=== PATIENT | female | born 1950 | race African-American/Black ===

== ENCOUNTER 2017-01-25 12:12 | Observation (INO) | payer OTHER, MEDICAID ==
[2017-01-25] MEDS ORDERED: PERCOCET TAB 5/325 MG PO PRN (14:50)
[2017-01-25] MEDS ORDERED: MILK OF MAGNESIA PO PRN (14:50)
[2017-01-25] MEDS ORDERED: XANAX PO PRN (14:50)
[2017-01-25] MEDS ORDERED: HumuLIN R SUBCUT PRN (14:50)
[2017-01-25] MEDS ORDERED: NS 250 ML IV 250 ML IV ONE (14:50)
[2017-01-25 15:24] LABS: EOSINOPHILS # (AUTO) 0.2 x10^3/uL (0.0-0.2); EOSINOPHILS % (AUTO) 3.6 % (0.9-2.9); HEMATOCRIT 27.6 % (36.0-47.0); HEMOGLOBIN 9.3 g/dL (12.0-16.0); LYMPHOCYTES # (AUTO) 1.4 X10^3/uL (1.3-2.9); LYMPHOCYTES % (AUTO) 30.2 % (21.0-51.0); MEAN CORPUSCULAR HEMOGLOBIN 26.3 pg (27.0-34.0); MEAN CORPUSCULAR HGB CONC 33.7 g/dL (33.0-35.0); MEAN CORPUSCULAR VOLUME 77.9 fL (80.0-100.0); MEAN PLATELET VOLUME 8.9 fL (7.4-11.0); MONOCYTES # (AUTO) 0.3 x10^3/uL (0.3-0.8); MONOCYTES % (AUTO) 5.5 % (0.0-13.0); NEUTROPHILS # (AUTO) 2.7 x10^3/uL (2.2-4.8); NEUTROPHILS % (AUTO) 59.7 % (42.0-75.0); PLATELET COUNT 164 X10^3/uL (150.0-450.0); RED BLOOD COUNT 3.54 X10^6/uL (3.5-5.4); RED CELL DISTRIBUTION WIDTH 15.5 % (11.6-16.5); RETICULOCYTE % 1.75 % (0.8-2.2); WHITE BLOOD COUNT 4.6 X10^3/uL (3.6-10.0)
[2017-01-25 15:34] LABS: ALANINE AMINOTRANSFERASE 21 Units/L (12-78); ALBUMIN 2.9 g/dL (3.4-5.0); ALKALINE PHOSPHATASE 99 Units/L (46-116); ASPARTATE AMINO TRANSFERASE 21 Units/L (15-37); BLOOD UREA NITROGEN 35 mg/dL (7-18); CARBON DIOXIDE 21.7 mmol/L (21-32); COR CA(FOR HYPOALB) 8.9 mg/dL (8.5-10.1); CREATININE 2.99 mg/dL (0.55-1.02); GLUCOSE 109 mg/dL (65-99); SODIUM 146 mmol/L (136-145); TOTAL PROTEIN 6.8 g/dL (6.4-8.2); eGFR BLACK RACES 20 (>60); eGFR NON BLACK RACES 17 (>60)
[2017-01-25 15:36] LABS: CHLORIDE 115 mmol/L (98-107)
[2017-01-25] MEDS: NS 1000 ML 1,000 ML IV SCH (15:44)
[2017-01-25 16:04] LABS: IRON 38 ug/dL (50-175); TRANSFERRIN 138 mg/dL (202-364)
[2017-01-25 16:05] LABS: ERYTHROCYTE SEDIMENTATION RATE 40 MM/HOUR (0-20)
[2017-01-25 16:23] VITALS: BMI 28.4
[2017-01-25] MEDS: SNACK - Diabetic Appropriate PO SCH (21:34)
[2017-01-25] MEDS: LIPITOR TAB 40 MG PO SCH (21:35)
[2017-01-25] MEDS: DILANTIN CAP 100 MG EXT REL PO SCH (21:35)
[2017-01-26 05:09] LABS: BASOPHILS % (AUTO) 0.7 % (0.2-1.0); EOSINOPHILS # (AUTO) 0.2 x10^3/uL (0.0-0.2); EOSINOPHILS % (AUTO) 4.1 % (0.9-2.9); HEMATOCRIT 24.6 % (36.0-47.0); HEMOGLOBIN 8.3 g/dL (12.0-16.0); LYMPHOCYTES # (AUTO) 1.5 X10^3/uL (1.3-2.9); LYMPHOCYTES % (AUTO) 35.4 % (21.0-51.0); MEAN CORPUSCULAR HEMOGLOBIN 26.6 pg (27.0-34.0); MEAN CORPUSCULAR HGB CONC 33.5 g/dL (33.0-35.0); MEAN CORPUSCULAR VOLUME 79.4 fL (80.0-100.0); MEAN PLATELET VOLUME 9.7 fL (7.4-11.0); MONOCYTES # (AUTO) 0.3 x10^3/uL (0.3-0.8); MONOCYTES % (AUTO) 7.3 % (0.0-13.0); NEUTROPHILS # (AUTO) 2.2 x10^3/uL (2.2-4.8); NEUTROPHILS % (AUTO) 52.5 % (42.0-75.0); PLATELET COUNT 134 X10^3/uL (150.0-450.0); RED BLOOD COUNT 3.11 X10^6/uL (3.5-5.4); RED CELL DISTRIBUTION WIDTH 15.7 % (11.6-16.5); WHITE BLOOD COUNT 4.1 X10^3/uL (3.6-10.0)
[2017-01-26 05:35] LABS: ALANINE AMINOTRANSFERASE 19 Units/L (12-78); ALBUMIN 2.6 g/dL (3.4-5.0); ALKALINE PHOSPHATASE 91 Units/L (46-116); ASPARTATE AMINO TRANSFERASE 16 Units/L (15-37); BLOOD UREA NITROGEN 39 mg/dL (7-18); CALCIUM 7.4 mg/dL (8.5-10.1); CARBON DIOXIDE 18.6 mmol/L (21-32); COR CA(FOR HYPOALB) 8.5 mg/dL (8.5-10.1); CREATININE 2.99 mg/dL (0.55-1.02); GLUCOSE 74 mg/dL (65-99); SODIUM 146 mmol/L (136-145); TOTAL PROTEIN 6.2 g/dL (6.4-8.2); eGFR BLACK RACES 20 (>60); eGFR NON BLACK RACES 17 (>60)
[2017-01-26] MEDS: NS 1000 ML 1,000 ML IV SCH ×2 (05:35→17:10)
[2017-01-26 05:38] LABS: CHLORIDE 117 mmol/L (98-107)
[2017-01-26 06:39] LABS: BILIRUBIN,URINE NEGATIVE (NEGATIVE); BLOOD/HEMOGLOBIN,URINE 1+ (NEGATIVE); GLUCOSE, URINE NEGATIVE (NEGATIVE); KETONES,URINE NEGATIVE (NEGATIVE); LEUKOCYTE ESTERASE ,URINE NEGATIVE (NEGATIVE); NITRITES,URINE NEGATIVE (NEGATIVE); PROTEIN,URINE 3+ (NEGATIVE); UROBILINOGEN,URINE NORMAL (NORMAL)
[2017-01-26 06:52] LABS: APPEARANCE,URINE SLIGHTLY HAZY (CLEAR); BACTERIA,URINE TRACE /HPF (NEGATIVE); COLOR,URINE YELLOW (YELLOW); SQUAMOUS EPITHELIAL CELL,UR RARE /HPF (NEGATIVE)
[2017-01-26] MEDS: COLACE CAP 100 MG PO SCH (08:35)
[2017-01-26] MEDS: PROTONIX TAB 40 MG PO SCH (08:35)
[2017-01-26] MEDS: DILANTIN CAP 100 MG EXT REL PO SCH ×2 (08:36→21:45)
[2017-01-26] MEDS ORDERED: PLAVIX PO SCH (09:00)
[2017-01-26] MEDS ORDERED: FOLIC ACID TAB 1 MG PO SCH (09:00)
[2017-01-26] MEDS ORDERED: OXYCODONE PO PRN (09:39)
[2017-01-26] MEDS ORDERED: XANAX PO PRN (09:39)
[2017-01-26] MEDS ORDERED: ACETAMINOPHEN PO PRN (09:39)
[2017-01-26] MEDS ORDERED: [UNRECOGNIZED DRUG - OTHER] PO SCH (09:45)
[2017-01-26] MEDS ORDERED: CHOLECALCIFEROL PO SCH (09:45)
[2017-01-26] MEDS ORDERED: CALCIUM CARBONATE PO SCH (09:45)
[2017-01-26] MEDS ORDERED: LIPITOR TAB 20 MG PO SCH (10:00)
[2017-01-26] MEDS ORDERED: DILANTIN CAP 100 MG EXT REL PO SCH (10:00)
[2017-01-26] MEDS ORDERED: PERCOCET TAB 5/325 MG PO PRN (10:14)
[2017-01-26] MEDS: FOLIC ACID TAB 1 MG PO SCH (11:10)
[2017-01-26] MEDS: PLAVIX PO SCH (11:11)
--- NOTE | 2017-01-26 12:57 | DR.UPDATE ---
H&P Update History and Physical Update: History and Physical reviewed and patient examined. Changes noted: NO Yes with the following: Scanned H&P from office reviewed and is correct. Patient admitted with acute on chronic renal failure, hypotension and shortness of breath.
[2017-01-26] MEDS: ASPIRIN EC 81 MG PO SCH (13:08)
[2017-01-26] MEDS: ANTIVERT TAB 25 MG PO SCH ×3 (13:08→21:46)
[2017-01-26] MEDS: PriLOSEC PO SCH (13:08)
--- NOTE | 2017-01-26 13:12 | PCM.PROG ---
Progress Note - Progress Note for Day of Date: 01/26/17 - Subjective Subjective: Pateint is a 66yo female who was admitted to the hospital with acute on chronic renal failure, hypotension and shortness of breath. Patient blood pressure has improved this am to 136/62. She states that she still feel very weak and tired. Vital sign this am 97.7, 78, 18, 98%, 136/62. Labs are within normal limits with the exception of RBC 3.11, Hgb 8.3, Hct 24.6, MCV 79.4 , MCH 26.6, Plt count 134, Eso% 4.1, ESR 40, Sodium 146, Chloride 117, Carbon Dioxide 18.6, BUN 39, Creatinine 2.99, Est GFR 17, Calcium 7.4, Total Bilirubin 0.10, Total Protein 6.2, Albumin 2.6, Albumin/Globulin ratio 0.7, Dilantin level 3.6. WE are going to order a renal sonogram and ECHO for patient, resume her home medication with the exception of blood pressure medications. WE are also going to place SCD and GCS for VTE prophylaxis - Past Medical Family Social History Past Med/Fam/Surg Hx: No changes since H&P Allergies: Allergies MS Iodine [Iodine] Allergy (Severe, Verified 01/25/17 15:09) patient stated she is allergic to xray dye. - Review of Systems ROS: No change since H&P - Vital Signs and I&O's Vital Signs: 97.7, 78, 18, 98%, 136/62 Intake and Output: Intake & Output 01/24/17 01/25/17 01/26/17 01/27/17 11:59 11:59 11:59 11:59 Intake Total 1039 Balance 1039 - Physical Exam Oriented: Normal Eyes: Normal Ear: Normal Nose: Normal Throat: Normal Respiratory: Normal Cardiovascular: Normal : Normal Auscultation: Bowel Sounds: Normal Palpation: Normal Tenderness: Normal Skin: Decreased Turgur Musculoskeletal: Instability Psychiatric: Normal Mood Description: Calm Speech Pattern: Clear, Appropriate - Laboratory and Diagnostics Result Diagrams: 01/26/17 03:00 01/26/17 03:00 Labs: Laboratory WBC 4.1 X10^3/uL (3.6-10.0) 01/26/17 03:00 RBC 3.11 X10^6/uL (3.5-5.4) L 01/26/17 03:00 Hgb 8.3 g/dL (12.0-16.0) L 01/26/17 03:00 Hct 24.6 % (36.0-47.0) L 01/26/17 03:00 MCV 79.4 fL (80.0-100.0) L 01/26/17 03:00 MCH 26.6 pg (27.0-34.0) L 01/26/17 03:00 MCHC 33.5 g/dL (33.0-35.0) 01/26/17 03:00 RDW 15.7 % (11.6-16.5) 01/26/17 03:00 Plt Count 134 X10^3/uL (150.0-450.0) L 01/26/17 03:00 MPV 9.7 fL (7.4-11.0) 01/26/17 03:00 Neut % 52.5 % (42.0-75.0) 01/26/17 03:00 Lymph % 35.4 % (21.0-51.0) 01/26/17 03:00 [place] % 7.3 % (0.0-13.0) 01/26/17 03:00 Eos % 4.1 % (0.9-2.9) H 01/26/17 03:00 Baso % 0.7 % (0.2-1.0) 01/26/17 03:00 Neut # 2.2 x10^3/uL (2.2-4.8) 01/26/17 03:00 Lymph # 1.5 X10^3/uL (1.3-2.9) 01/26/17 03:00 [place] # 0.3 x10^3/uL (0.3-0.8) 01/26/17 03:00 Eos # 0.2 x10^3/uL (0.0-0.2) 01/26/17 03:00 Baso # 0.0 X10^3/uL (0.0-0.1) 01/26/17 03:00 Absolute Nucleated RBC 0.1 /100WBC 01/26/17 03:00 ESR 40 MM/HOUR (0-20) H 01/25/17 15:10 Absolute Retic 0.0620 10^6/uL 01/25/17 15:10 Percent Retic 1.75 % (0.8-2.2) 01/25/17 15:10 Sodium 146 mmol/L (136-145) H 01/26/17 03:00 Corrected Sodium TNP 01/26/17 03:00 Potassium 4.7 mmol/L (3.5-5.1) 01/26/17 03:00 Chloride 117 mmol/L (98-107) H* 01/26/17 03:00 Carbon Dioxide 18.6 mmol/L (21-32) L 01/26/17 03:00 BUN 39 mg/dL (7-18) H 01/26/17 03:00 Creatinine 2.99 mg/dL (0.55-1.02) H 01/26/17 03:00 Est GFR (MDRD) Af Amer 20 (>60) L 01/26/17 03:00 Est GFR (MDRD) Non-Af 17 (>60) L 01/26/17 03:00 Glucose 74 mg/dL (65-99) 01/26/17 03:00 Calcium 7.4 mg/dL (8.5-10.1) L 01/26/17 03:00 Corrected Calcium 8.5 mg/dL (8.5-10.1) 01/26/17 03:00 Iron 38 ug/dL (50-175) L 01/25/17 15:10 Transferrin 138 mg/dL (202-364) L 01/25/17 15:10 Ferritin 87 ng/mL (8-252) 01/25/17 15:10 Total Bilirubin 0.10 mg/dL (0.2-1.0) L 01/26/17 03:00 AST 16 Units/L (15-37) 01/26/17 03:00 ALT 19 Units/L (12-78) 01/26/17 03:00 Alkaline Phosphatase 91 Units/L (46-116) 01/26/17 03:00 C-Reactive Protein 2.20 mg/L (0-3.0) 01/25/17 15:10 Total Protein 6.2 g/dL (6.4-8.2) L 01/26/17 03:00 Albumin 2.6 g/dL (3.4-5.0) L 01/26/17 03:00 Globulin 3.6 g/dL (2.5-4.5) 01/26/17 03:00 Albumin/Globulin Ratio 0.7 Ratio (1.1-2.1) L 01/26/17 03:00 Vitamin B12 830 pg/mL (193-986) 01/25/17 15:10 Folate > 20.0 ng/mL (>8.6) 01/25/17 15:10 Specimen Type Clean catch urine 01/26/17 06:18 Urine Color Yellow (YELLOW) 01/26/17 06:18 Urine Appearance Slightly hazy (CLEAR) 01/26/17 06:18 Urine pH 5.0 (5.0 - 8.0) 01/26/17 06:18 Ur Specific [place] 1.015 (1.000-1.030) 01/26/17 06:18 Urine Protein 3+ (NEGATIVE) 01/26/17 06:18 Urine Glucose (UA) Negative (NEGATIVE) 01/26/17 06:18 Urine Ketones Negative (NEGATIVE) 01/26/17 06:18 Urine Occult Blood 1+ (NEGATIVE) 01/26/17 06:18 Urine Nitrite Negative (NEGATIVE) 01/26/17 06:18 Urine Bilirubin Negative (NEGATIVE) 01/26/17 06:18 Urine Urobilinogen Normal (NORMAL) 01/26/17 06:18 Ur Leukocyte Esterase Negative (NEGATIVE) 01/26/17 06:18 Urine RBC 8-10 /HPF (NEGATIVE) 01/26/17 06:18 Urine WBC 2-4 /HPF (NEGATIVE) 01/26/17 06:18 Ur Squamous Epith Cells Rare /HPF (NEGATIVE) 01/26/17 06:18 Urine Bacteria Trace /HPF (NEGATIVE) 01/26/17 06:18 Ur Culture Indicated? No/not indicated 01/26/17 06:18 Phenytoin 3.6 ug/mL (10-20) L 01/25/17 15:10 - Plan (1) Hypotension Status: Acute Qualifiers: Hypotension type: H Trimester: T Plan: hold blood pressure medications, NS @75 (2) Renal failure Status: Acute Qualifiers: Renal failure chronicity: R Acute renal failure type: A Chronic kidney disease stage: C Plan: monitor (3) Diabetes mellitus, type 2 Status: Chronic Qualifiers: Diabetes mellitus complication status: with unspecified complications Diabetes mellitus complication detail: D Diabetic retinopathy severity: D Proliferative retinopathy type: P Diabetes mellitus macular edema: D Diabetes mellitus bottle packer insulin use: D Laterality: L Chronic kidney disease stage: C Qualified Code(s): E11.8 - Type 2 diabetes mellitus with unspecified complications Plan: OTBS ACHS with SSC (4) GERD (gastroesophageal reflux disease) Status: Chronic Qualifiers: Esophagitis presence: E Plan: continue protonix (5) Hyperlipidemia Status: Chronic Qualifiers: Hyperlipidemia type: H Plan: continue atorvastatin (6) Seizure Status: Chronic Plan: continue dilatin
--- NOTE | 2017-01-26 17:29 | US ---
HISTORY: Renal failure. Study: Renal ultrasound Comparison: None available. Technique: Multiple pelayo scale and color flow Doppler images of the kidneys were obtained. The [place] on of the urinary bladder was evaluated as well. Findings: The right kidney is small and demonstrates increased echotexture. The right kidney measures 9.3 cm. No hydronephrosis, or stones identified. Question of a 2.4 x 2.4 x 1.8 cm right superior renal pole lesion. No internal color flow. The left kidney is small and demonstrates increased echotexture. The left kidney measures 8.5 cm. No focal mass, hydronephrosis, or stone can be seen within the left kidney. The region of the urinary bladder is grossly unremarkable. IMPRESSION: 1. The kidneys are small and demonstrate increased echogenicity. This likely represents medical katrin al disease. 2. Question of a right superior renal pole 2.[address] cm lesion. Consider dedicated CT of the kidneys for f urther characterization. Reported By:
[2017-01-26 18:31] LABS: BASOPHILS % (AUTO) 0.4 % (0.2-1.0); EOSINOPHILS # (AUTO) 0.2 x10^3/uL (0.0-0.2); EOSINOPHILS % (AUTO) 3.5 % (0.9-2.9); HEMOGLOBIN 9.1 g/dL (12.0-16.0); LYMPHOCYTES # (AUTO) 1.4 X10^3/uL (1.3-2.9); LYMPHOCYTES % (AUTO) 28.7 % (21.0-51.0); MEAN CORPUSCULAR HEMOGLOBIN 26.4 pg (27.0-34.0); MEAN CORPUSCULAR HGB CONC 33.6 g/dL (33.0-35.0); MEAN CORPUSCULAR VOLUME 78.5 fL (80.0-100.0); MEAN PLATELET VOLUME 8.5 fL (7.4-11.0); MONOCYTES # (AUTO) 0.3 x10^3/uL (0.3-0.8); MONOCYTES % (AUTO) 6.3 % (0.0-13.0); NEUTROPHILS # (AUTO) 2.9 x10^3/uL (2.2-4.8); NEUTROPHILS % (AUTO) 61.1 % (42.0-75.0); PLATELET COUNT 155 X10^3/uL (150.0-450.0); RED BLOOD COUNT 3.44 X10^6/uL (3.5-5.4); RED CELL DISTRIBUTION WIDTH 15.7 % (11.6-16.5); WHITE BLOOD COUNT 4.8 X10^3/uL (3.6-10.0)
[2017-01-26 18:50] LABS: ALANINE AMINOTRANSFERASE 19 Units/L (12-78); ALBUMIN 2.8 g/dL (3.4-5.0); ALKALINE PHOSPHATASE 98 Units/L (46-116); ASPARTATE AMINO TRANSFERASE 16 Units/L (15-37); BLOOD UREA NITROGEN 38 mg/dL (7-18); CREATININE 3.12 mg/dL (0.55-1.02); GLUCOSE 110 mg/dL (65-99); SODIUM 147 mmol/L (136-145); TOTAL PROTEIN 6.6 g/dL (6.4-8.2); eGFR BLACK RACES 19 (>60); eGFR NON BLACK RACES 16 (>60)
[2017-01-26 18:52] LABS: CHLORIDE 118 mmol/L (98-107)
[2017-01-26] MEDS: LIPITOR TAB 40 MG PO SCH (21:44)
[2017-01-26] MEDS: NS 1/2 1000 ML IV 1,000 ML IV SCH (21:44)
[2017-01-26] MEDS ORDERED: NS 1/2 1000 ML IV 1,000 ML IV ONE (21:45)
[2017-01-26] MEDS: SNACK - Diabetic Appropriate PO SCH (21:46)
[2017-01-27 05:00] LABS: BASOPHILS % (AUTO) 0.8 % (0.2-1.0); EOSINOPHILS # (AUTO) 0.2 x10^3/uL (0.0-0.2); EOSINOPHILS % (AUTO) 4.3 % (0.9-2.9); HEMATOCRIT 25.1 % (36.0-47.0); HEMOGLOBIN 8.5 g/dL (12.0-16.0); LYMPHOCYTES # (AUTO) 1.5 X10^3/uL (1.3-2.9); LYMPHOCYTES % (AUTO) 34.6 % (21.0-51.0); MEAN CORPUSCULAR HEMOGLOBIN 26.6 pg (27.0-34.0); MEAN CORPUSCULAR HGB CONC 33.8 g/dL (33.0-35.0); MEAN CORPUSCULAR VOLUME 78.7 fL (80.0-100.0); MEAN PLATELET VOLUME 9.5 fL (7.4-11.0); MONOCYTES # (AUTO) 0.3 x10^3/uL (0.3-0.8); MONOCYTES % (AUTO) 7.3 % (0.0-13.0); NEUTROPHILS # (AUTO) 2.3 x10^3/uL (2.2-4.8); PLATELET COUNT 134 X10^3/uL (150.0-450.0); RED BLOOD COUNT 3.19 X10^6/uL (3.5-5.4); RED CELL DISTRIBUTION WIDTH 15.4 % (11.6-16.5); WHITE BLOOD COUNT 4.3 X10^3/uL (3.6-10.0)
[2017-01-27 05:18] LABS: ALANINE AMINOTRANSFERASE 17 Units/L (12-78); ALBUMIN 2.6 g/dL (3.4-5.0); ALKALINE PHOSPHATASE 90 Units/L (46-116); ASPARTATE AMINO TRANSFERASE 16 Units/L (15-37); BLOOD UREA NITROGEN 37 mg/dL (7-18); CALCIUM 7.7 mg/dL (8.5-10.1); CARBON DIOXIDE 19.4 mmol/L (21-32); COR CA(FOR HYPOALB) 8.8 mg/dL (8.5-10.1); CREATININE 2.92 mg/dL (0.55-1.02); GLUCOSE 97 mg/dL (65-99); SODIUM 147 mmol/L (136-145); TOTAL PROTEIN 6.2 g/dL (6.4-8.2); eGFR BLACK RACES 21 (>60); eGFR NON BLACK RACES 17 (>60)
[2017-01-27 05:22] LABS: CHLORIDE 118 mmol/L (98-107)
[2017-01-27] MEDS: ANTIVERT TAB 25 MG PO SCH (05:34)
[2017-01-27 08:00] VITALS: BP 189/89
[2017-01-27] MEDS ORDERED: NS 1/2 1000 ML IV 0 ML IV ONE (08:09)
[2017-01-27] MEDS: DILANTIN CAP 100 MG EXT REL PO SCH (08:51)
[2017-01-27] MEDS: FOLIC ACID TAB 1 MG PO SCH (08:51)
[2017-01-27] MEDS: NS 1/2 1000 ML IV 1,000 ML IV SCH (08:51)
[2017-01-27] MEDS: COLACE CAP 100 MG PO SCH (08:51)
[2017-01-27] MEDS: ASPIRIN EC 81 MG PO SCH (08:51)
[2017-01-27] MEDS: PriLOSEC PO SCH (08:52)
[2017-01-27] MEDS: PROTONIX TAB 40 MG PO SCH (08:52)
[2017-01-27] MEDS: PLAVIX PO SCH (08:52)
[2017-01-27] MEDS ORDERED: OSCAL+D or CALTRATE+D PO SCH (09:00)
--- NOTE | 2017-01-27 10:25 | DR.CARTERD ---
- Discharge Summary for: Discharge Summary for Date of:: 01/27/17 - Admission Date Date of Admission: 01/25/17 - Admission Diagnoses Admission Diagnosis: Acute on Chronic Renal FAilure. Hypotension. Dyspnea - Discharge Date Discharge Date: 01/27/17 - Discharge Diagnoses Discharge Diagnosis: Acute on Chronic Renal FAilure Hypotension Dyspnea Diabetes Mellitus Type 2 GERD Hyperlipidemia Hypernatremia - Hospital Course Hospital Course: Patient is a 66yo female who is a patient of our who presented to the office for a follow up visit and complained of insomnia, malaise. Her labs revealed renal failure and she was experiencing hypotension and shortness of breath. Patient was admitted with diagnosis of acute on chronic renal failure, Hypotension and dyspnea. On arrival patients blood pressure was 97/52 she was started on NS@75ml/hr, home medications were resumed with the exception of her blood pressure medication which were all held. OTBS ACHS ordered with regular insulin sliding scale coverage. Labs on arrival were within normal limits with the exception of Hgb 9.3, Hct 27.6, MCV 77.9, MCH 26.3, Eos% 3.6, ESR 40, Sodium 146, Chloride 115, BUN 35, Creatinine 2.99, Est GFR 17, Glucose 109, Calcium 8.0, Iron 38, Transferrin 138, Albumin 2.9, Albumin/Globulin Ratio 0.7. Dilantin level 3.6. The following day after admission and ECHO was ordered which showed an ejection fracture of 66% and A renal ultrasound was performed which showed the kidneys are small and demonstrate increased echogenicity that likely represents medical renal disease, question of the right superior renal pole 2.4cm lesion. Patient blood pressure returned to normal at 136/62. This am her blood pressure is 189/89. Labs this am are within normal limits with the exception of RBC 3.19, Hgb 8.5, Hct 25.1, MCV 78.7, MCH 26.6, Plt count 134, Eos % 4.3, Sodium 147, Chloride 118, Carbon Dioxide 19.4, BUN 37, Creatinine 2.92, Est GFR 17, Calcium 7.7, Total Bilirubin 0.10, Total Protein 6.2, Albumin 2.6, Albumin/Globulin Ratio 0.7. Patient states that she is feeling better this am she has a engineering project manager she see named Dr. Mendez. We are going to discharge her in stable condition to follow up in 1 week and follow up with DR. Mendez as well. Patient to continue home medications with the exception of losartan 100mg daily and Nifedipine changed to at bedtime. Labs: Labs this am are within normal limits with the exception of RBC 3.19, Hgb 8.5, Hct 25.1, MCV 78.7, MCH 26.6, Plt count 134, Eos% 4.3, Sodium 147, Chloride 118 , Carbon Dioxide 19.4, BUN 37, Creatinine 2.92, Est GFR 17, Calcium 7.7, Total Bilirubin 0.10, Total Protein 6.2, Albumin 2.6, Albumin/Globulin Ratio 0.7. - Discharge Medications Discharge Medications: Alprazolam [XANAX 0.25 MG *] 1 tab PO BID PRN 01/25/17 [History] Atorvastatin Calcium [LIPITOR Tab 20 mg *] 40 mg PO DAILY 01/25/17 [History] Calcium Carbonate-Cholecalcife [Calcium 600+D3 600-800 mg-Unit] 1 tab PO DAILY 01/25/17 [History] Clonidine HCl [CATAPRES 0.2 MG TAB *] 1 tab PO BID 01/25/17 [History] Clopidogrel Bisulfate [PLAVIX TAB 75 MG *] 1 tab PO DAILY 01/25/17 [History] Folic Acid [FOLIC ACID TAB 1 MG *] 1 tab PO DAILY 01/25/17 [History] Isosorbide Mononitrate [Isosorbide Mononitrate ER] 1 tab PO BID 01/25/17 [ History] Lisinopril 1 tab PO DAILY 01/25/17 [History] Meclizine HCl [Meclizine 25] 1 tab PO TID 01/25/17 [History] Minoxidil 5 mg PO DAILY 01/25/17 [History] Omeprazole [PRILOSEC 20 MG *] 1 cap PO DAILY 01/25/17 [History] Oxycodone W/ Acetaminophen [Percocet 10-325 mg] 1 tab PO Q6H 01/25/17 [History] Nifedipine [Nifedipine ER] 90 mg PO HS #30 tab 01/27/17 [Rx] - Discharge Disposition Discharge Disposition: Home
== END 2017-01-27 10:40 | disposition home or self-care (01) ==
LOC: MED/SURG 12:12 → UNDOADMOB 12:12 → MED/SURG 14:32
PROVIDERS: ADMIT Internal Medicine; ATTEND Internal Medicine
DX: N17.8 Other acute kidney failure (principal); I95.89 Other hypotension; N18.9 Chronic kidney disease, unspecified; R06.09 Other forms of dyspnea; R06.02 Shortness of breath; E87.0 Hyperosmolality and hypernatremia; R74.8 Abnormal levels of other serum enzymes; R53.83 Other fatigue; R70.0 Elevated erythrocyte sedimentation rate; E11.65 Type 2 diabetes mellitus with hyperglycemia; K21.9 Gastro-esophageal reflux disease without esophagitis; E78.2 Mixed hyperlipidemia; G40.89 Other seizures
CPT/HCPCS: 36415; 76770; 80053; 80185; 81001; 82607; 82728; 82746; 83540; 84466; 85025; 85045; 85652; 86140; 93306; A4222; G0378; J1815

== ENCOUNTER 2017-06-09 13:16 | Observation (INO) | payer OTHER, MEDICAID ==
[2017-06-09] MEDS ORDERED: HumuLIN R SUBCUT PRN (16:06)
[2017-06-09] MEDS ORDERED: PriLOSEC PO SCH (16:06)
[2017-06-09] MEDS ORDERED: PERCOCET TAB 5/325 MG PO PRN (16:06)
[2017-06-09] MEDS: NS 1000 ML 1,000 ML IV SCH (16:42)
[2017-06-09 16:43] LABS: BASOPHILS % (AUTO) 0.2 % (0.2-1.0); EOSINOPHILS # (AUTO) 0.1 x10^3/uL (0.0-0.2); EOSINOPHILS % (AUTO) 0.7 % (0.9-2.9); HEMATOCRIT 30.3 % (36.0-47.0); LYMPHOCYTES # (AUTO) 0.7 X10^3/uL (1.3-2.9); LYMPHOCYTES % (AUTO) 7.6 % (21.0-51.0); MEAN CORPUSCULAR HGB CONC 33.1 g/dL (33.0-35.0); MEAN CORPUSCULAR VOLUME 78.5 fL (80.0-100.0); MEAN PLATELET VOLUME 8.9 fL (7.4-11.0); MONOCYTES # (AUTO) 0.4 x10^3/uL (0.3-0.8); MONOCYTES % (AUTO) 3.8 % (0.0-13.0); NEUTROPHILS # (AUTO) 8.4 x10^3/uL (2.2-4.8); NEUTROPHILS % (AUTO) 87.7 % (42.0-75.0); PLATELET COUNT 202 X10^3/uL (150.0-450.0); RED BLOOD COUNT 3.86 X10^6/uL (3.5-5.4); RED CELL DISTRIBUTION WIDTH 15.2 % (11.6-16.5); WHITE BLOOD COUNT 9.6 X10^3/uL (3.6-10.0)
[2017-06-09 16:56] LABS: ALBUMIN 2.9 g/dL (3.4-5.0); CALCIUM 8.4 mg/dL (8.5-10.1); CARBON DIOXIDE 21.1 mmol/L (21-32); COR CA(FOR HYPOALB) 9.3 mg/dL (8.5-10.1); CREATININE 2.95 mg/dL (0.55-1.02); MAGNESIUM 1.8 mg/dL (1.7-2.9); TOTAL PROTEIN 6.9 g/dL (6.4-8.2)
[2017-06-09 17:09] LABS: CREATINE KINASE 98 Units/L (26-192); CREATINE KINASE MB < 1.0 ng/mL (0-4.0); TROPONIN I 0.04 ng/mL (0-1.5)
[2017-06-09] MEDS ORDERED: FLUVIRIN IM ONE (17:28)
[2017-06-09 17:29] VITALS: BMI 26.2
--- NOTE | 2017-06-09 18:34 | CT ---
HISTORY: Chest pain and shortness of breath. Chest pain radiates to both sides of neck. Study: Computed tomography of the chest: Multiple axial images were obtained throughout the chest. Intravascular contrast was not administered. Radiation dose reduction techniques utilized. Comparison: 01/14/2016 Findings: There is moderate patchy ground-glass opacity in the right upper , right lower and left lower lobes. Minimal is noted in the right middle lobe. Minimal is noted in the left upper lobe anteriorly . Th is most likely is due to underlying pneumonia. Follow-up to resolution however is recommended. No evidence of supraclavicular adenopathy is identified. The thyroid is moderately heterogeneous and appears to have nodules. Thyroid ultrasound may be of assistance. I see no evidence of axillary ad enopathy. A few small mediastinal lymph nodes are present. The heart size is normal. Significant c oronary arterial calcification is noted. Minimal pericardial effusion is noted. The liver as visualized is normal. The gallbladder is mildly distended. The spleen is normal. The adrenal glands are normal. The visualized kidneys are normal. Minimal atherosclerotic changes noted in the abdominal aorta. The bone windows demonstrate mild to moderate cervical spondylosis and mild thoracic spondylosis. Mi nimal is also noted in the upper lumbar spine. No acute bony abnormalities are identified. IMPRESSION: 1. There are patchy densities present in both lungs as described above. This most likely is on the basis of pneumonia, however, follow-up is recommended to ensure clearing and to exclude the possibili ty of an underlying mass. 2. The thyroid is heterogeneous and appears to have nodules. Thyroid ultrasound may be of assistanc e. 3. Significant coronary arterial calcification. A small pericardial effusion is present. 4. Mild gallbladder distention. Reported By:
[2017-06-09] MEDS ORDERED: TUSSIONEX PENNKINETIC SUSP PO PRN (18:41)
[2017-06-09] MEDS: APRESOLINE TAB 25 MG PO SCH (18:45)
[2017-06-09] MEDS: CATAPRES TAB 0.2 MG PO SCH ×2 (18:46→21:13)
[2017-06-09] MEDS: PLAVIX PO SCH (18:46)
[2017-06-09] MEDS: ZOLOFT PO SCH (18:46)
[2017-06-09] MEDS ORDERED: FORTAZ or TAZICEF INJ 1 GM in NS 50 ML IV + SPIKE MINIBAG* 50 ML IV SCH (20:00)
[2017-06-09] MEDS ORDERED: FORTAZ or TAZICEF INJ ONE (20:35)
[2017-06-09] MEDS ORDERED: NS 50 ML IV 50 ML IV ONE (20:36)
[2017-06-09 20:59] LABS: CKMB % 1.2 % (<4); CREATINE KINASE 85 Units/L (26-192); CREATINE KINASE MB < 1.0 ng/mL (0-4.0); TROPONIN I 0.04 ng/mL (0-1.5)
[2017-06-09] MEDS ORDERED: LEVAQUIN PREMIX IV 500 MG 500 MG/100 ML BAG IV ONE (21:00)
[2017-06-09] MEDS: DUONEB 0.5 MG/3 MG NEB SCH (21:08)
[2017-06-09] MEDS: ROBITUSSIN DM PO SCH (21:13)
[2017-06-09] MEDS: SNACK - Diabetic Appropriate PO SCH (21:14)
[2017-06-10] MEDS: APRESOLINE TAB 25 MG PO SCH (00:20)
[2017-06-10 00:52] LABS: CKMB % 1.3 % (<4); CREATINE KINASE 76 Units/L (26-192); CREATINE KINASE MB < 1.0 ng/mL (0-4.0); TROPONIN I 0.04 ng/mL (0-1.5)
[2017-06-10] MEDS: NS 1000 ML 1,000 ML IV SCH ×3 (04:46→22:00)
[2017-06-10 06:03] LABS: BASOPHILS % (AUTO) 0.7 % (0.2-1.0); EOSINOPHILS # (AUTO) 0.1 x10^3/uL (0.0-0.2); EOSINOPHILS % (AUTO) 1.6 % (0.9-2.9); HEMATOCRIT 24.8 % (36.0-47.0); HEMOGLOBIN 8.4 g/dL (12.0-16.0); LYMPHOCYTES # (AUTO) 1.3 X10^3/uL (1.3-2.9); LYMPHOCYTES % (AUTO) 18.6 % (21.0-51.0); MEAN CORPUSCULAR HGB CONC 33.9 g/dL (33.0-35.0); MEAN CORPUSCULAR VOLUME 79.7 fL (80.0-100.0); MEAN PLATELET VOLUME 9.2 fL (7.4-11.0); MONOCYTES # (AUTO) 0.4 x10^3/uL (0.3-0.8); MONOCYTES % (AUTO) 5.8 % (0.0-13.0); NEUTROPHILS % (AUTO) 73.3 % (42.0-75.0); PLATELET COUNT 149 X10^3/uL (150.0-450.0); RED BLOOD COUNT 3.12 X10^6/uL (3.5-5.4); RED CELL DISTRIBUTION WIDTH 15.2 % (11.6-16.5); WHITE BLOOD COUNT 6.8 X10^3/uL (3.6-10.0)
--- NOTE | 2017-06-10 06:29 | RAD ---
Examination: Portable AP chest History: SOB chest pain Comparison reference 01/14/2016 Findings: Continued cardiomegaly. The central pulmonary vessels are distended. There is no evidence f or pulmonary consolidation, pleural fluid or pulmonary edema. Impression: Cardiomegaly and pulmonary vascular congestion. Reported By:
[2017-06-10 06:46] LABS: ALANINE AMINOTRANSFERASE 17 Units/L (12-78); ALBUMIN 2.4 g/dL (3.4-5.0); ALKALINE PHOSPHATASE 68 Units/L (46-116); ASPARTATE AMINO TRANSFERASE 13 Units/L (15-37); BLOOD UREA NITROGEN 44 mg/dL (7-18); CHLORIDE 112 mmol/L (98-107); CHOL/HDL RATIO 1.8 (0.0-5.0); CHOLESTEROL 135 mg/dL (0-200); COR CA(FOR HYPOALB) 9.3 mg/dL (8.5-10.1); CREATININE 3.02 mg/dL (0.55-1.02); HDL CHOLESTEROL 74 mg/dL (40-60); SODIUM 143 mmol/L (136-145); TOTAL PROTEIN 6.1 g/dL (6.4-8.2); TRIGLYCERIDES 26 mg/dL (0-150); eGFR BLACK RACES 20 (>60); eGFR NON BLACK RACES 16 (>60)
[2017-06-10] MEDS: DUONEB 0.5 MG/3 MG NEB SCH ×3 (08:03→21:30)
[2017-06-10] MEDS: NS IV SCH (09:12)
[2017-06-10] MEDS: FORTAZ OR TAZICEF IV SCH (09:12)
[2017-06-10] MEDS ORDERED: ROCALTROL PO SCH (10:00)
[2017-06-10] MEDS ORDERED: PATIENT'S HOME MEDICATION (Spironolactone [Spironolactone] 1 TAB) PO SCH (10:00)
[2017-06-10] MEDS ORDERED: PATIENT'S HOME MEDICATION (Sertraline Hcl [Zoloft 25 Mg] 1 TAB) PO SCH (10:00)
[2017-06-10] MEDS ORDERED: PATIENT'S HOME MEDICATION (Lisinopril [Lisinopril] 1 TAB) PO SCH (10:00)
[2017-06-10] MEDS: DILANTIN CAP 100 MG EXT REL PO SCH ×2 (11:27→20:18)
[2017-06-10] MEDS: ROBITUSSIN DM PO SCH ×4 (11:27→20:18)
[2017-06-10] MEDS: MINOXIDIL PO SCH (11:27)
[2017-06-10] MEDS: FOLIC ACID TAB 1 MG PO SCH (11:28)
[2017-06-10] MEDS: ZESTRIL TAB 40 MG PO SCH (11:28)
[2017-06-10] MEDS: LIPITOR TAB 20 MG PO SCH (11:28)
[2017-06-10] MEDS: ASPIRIN EC 81 MG PO SCH (11:28)
[2017-06-10] MEDS: COLACE CAP 100 MG PO SCH (11:29)
[2017-06-10] MEDS: ALDACTONE TAB 25 MG PO SCH (11:29)
[2017-06-10] MEDS: PLAVIX PO SCH (11:29)
[2017-06-10] MEDS: CATAPRES TAB 0.1 MG PO SCH ×2 (11:29→20:18)
--- NOTE | 2017-06-10 11:29 | US ---
HISTORY: CT suggesting gallbladder distention. Study: Right upper quadrant ultrasound: Multiplanar ultrasonographic examination the right upper ab dominal quadrant was performed. Comparison: CT scan from 06/09/2017 Findings: The liver is of normal size, echogenicity and echotexture. I see no evidence of intrahepatic biliary duct dilatation. The gallbladder is borderline distended. No evidence of gallstones, pericholecyst ic fluid or gallbladder wall thickening is noted. The pancreas as visualized is normal. The right k idney is of normal size, echogenicity and echotexture measuring 11.5 cm in length by 4.5 x 3.2 cm. IMPRESSION: 1. Borderline gallbladder distention. I see no evidence of gallstones, pericholecystic fluid or gal lbladder wall thickening. 2. Otherwise negative right upper quadrant ultrasound Reported By:
[2017-06-10] MEDS: PriLOSEC PO SCH (11:30)
[2017-06-10] MEDS: ZOLOFT PO SCH (11:34)
--- NOTE | 2017-06-10 11:55 | US ---
History: Abnormal CT of thyroid Study: Thyroid ultrasound Findings: The right lobe overall measures 4.73 x 2.6 by 2.97. The left lobe measures 5. 2 by 2 by 2.2 cm. The isthmus measures 3 mm thickness. There are multiple hypoechoic thyroid nodules. Inferiorly o n the left is a 10.4 x 5.7 mm nodule. On the right superiorly is a 1.5 x 1 cm cyst. More inferiorly i s a 1.7 x 1.5 cm hypoechoic nodule. It is of mixed echogenicity. Impression: Multinodular mildly enlarged gland Reported By:
[2017-06-10] MEDS: SNACK - Diabetic Appropriate PO SCH (22:54)
[2017-06-11 06:27] LABS: ALANINE AMINOTRANSFERASE 17 Units/L (12-78); ALBUMIN 2.6 g/dL (3.4-5.0); ALKALINE PHOSPHATASE 70 Units/L (46-116); ASPARTATE AMINO TRANSFERASE 16 Units/L (15-37); BLOOD UREA NITROGEN 43 mg/dL (7-18); CALCIUM 8.2 mg/dL (8.5-10.1); CARBON DIOXIDE 20.9 mmol/L (21-32); CHLORIDE 112 mmol/L (98-107); COR CA(FOR HYPOALB) 9.3 mg/dL (8.5-10.1); CREATININE 3.24 mg/dL (0.55-1.02); SODIUM 143 mmol/L (136-145); TOTAL PROTEIN 6.4 g/dL (6.4-8.2); eGFR BLACK RACES 18 (>60); eGFR NON BLACK RACES 15 (>60)
[2017-06-11 06:29] LABS: BASOPHILS % (AUTO) 0.5 % (0.2-1.0); EOSINOPHILS # (AUTO) 0.1 x10^3/uL (0.0-0.2); EOSINOPHILS % (AUTO) 3.2 % (0.9-2.9); HEMATOCRIT 24.9 % (36.0-47.0); HEMOGLOBIN 8.4 g/dL (12.0-16.0); LYMPHOCYTES # (AUTO) 1.1 X10^3/uL (1.3-2.9); LYMPHOCYTES % (AUTO) 22.8 % (21.0-51.0); MEAN CORPUSCULAR HEMOGLOBIN 26.9 pg (27.0-34.0); MEAN CORPUSCULAR HGB CONC 33.7 g/dL (33.0-35.0); MEAN PLATELET VOLUME 9.4 fL (7.4-11.0); MONOCYTES # (AUTO) 0.3 x10^3/uL (0.3-0.8); MONOCYTES % (AUTO) 5.9 % (0.0-13.0); NEUTROPHILS # (AUTO) 3.2 x10^3/uL (2.2-4.8); NEUTROPHILS % (AUTO) 67.6 % (42.0-75.0); PLATELET COUNT 150 X10^3/uL (150.0-450.0); RED BLOOD COUNT 3.12 X10^6/uL (3.5-5.4); RED CELL DISTRIBUTION WIDTH 15.4 % (11.6-16.5); WHITE BLOOD COUNT 4.7 X10^3/uL (3.6-10.0)
--- NOTE | 2017-06-11 08:30 | DR.H&P ---
H&P - History & Physical for Day of: H&P Date: 06/09/17 - Chief Complaint Chief Complaint: chest pain - Allergies Allergies/Adverse Reactions: Allergies Allergy/AdvReac Type Severity Reaction Status Date / Time iodine Allergy Verified 06/09/17 16:06 - History of Present Illness History of Present Illness: is a 67 year old patient of ours who was a direct admission from our office. She presented to the office with complaints of chest pain and shortness of breath that started suddenly on 06/08/17. Patient has a medical history of CVA, HTN, and hyperlipidemia. Her EKG in the office reported changes compared to previous EKG. On examination, lung sounds were diminished. Abdomen is round, soft, and non-tender with normal bowel sounds noted in all quadrants. We planned to admit patient on the chest pain protocol to rule out acute RI. She was started on Normal saline at 75ml/hr, ASA 81mg daily, Plavix 75mg daily. We planned to monitor OTBS and start Humulin R sliding scale for patients history of diabetes mellitis. On admission, labs, chest CT, and EKG were obtained. Abnormal lab values include the following: HGB 10.0, HCT 30.3, chloride 110, bun 40, creatinine 2.95, glucose 177,calcium 8.4, albumin 2.9, a/g ratio 0.7. Cardiac enzymes are negative. EKG reported sinus rhythm with HR 82. Chest CT reported patchy densities present in both lungs. This most likely is on the basis of pneumonia, however, follow- up is recommended to ensure clearing and to exclude the possibility of an underlying mass. The thyroid is heterogeneous and appears to have nodules. Thyroid ultrasound recommended. Significant coronary artery calcification. A small pericardial effusion is present. Mild gallbladder distention. We will start patient on fortaz and Levaquin IV and start the pneumonia protocol. We will order for a thyroid US and gallbladder US to be obtained in the morning. Patient will remain NPO after midnight for a fasting lipid panel in the morning. Otherwise, we plan to follow up with am labs, chest xray, and serial cardiac enzymes and EKG. We will continue to monitor patient. - Past Medical History Past Medical History: Anemia, Arthritis, Diabetes, Dyslipidemia, GERD, Hypertension, Seizures Additional Medical History: Cataracts, Intracranial Hemorrhage, Pneumonia - Past Surgical History Surgical History: , Other Additional Surgical History: Back Surgery - Family History Family Medical History: Diabetes Mellitus, Cancer, Coronary Artery Disease, Hypertension - Social History Does patient currently use any type of tobacco product: Yes Have you used tobacco products in the last 12 months: Yes Type of Tobacco Use: dips snuff How many years tobacco product used: 2 Does any household member use tobacco: No Alcohol Use: None Drug Use: Prescription Drugs - Medications Home Medications: Calcitriol [ROCALTROL 0.25 MCG *] 2 cap PO .06/09/17 [ History Confirmed 06/09/17] Docusate Sodium [Stool Softener] 1 tab PO DAILY 06/09/17 [History Confirmed 09/24] Losartan Potassium 1 tab PO DAILY 06/09/17 [History Confirmed 06/09/17] Nifedipine [Nifedipine ER] 90 mg PO BID 06/09/17 [History Confirmed 06/09/17] Phenytoin Sodium Ext Rel [DILANTIN CAP 100 MG EXT REL *] 200 mg PO BID 06/09/17 [History Confirmed 06/09/17] Sertraline HCl [Zoloft 25 mg] 1 tab PO DAILY 06/09/17 [History Confirmed ] - Review of Systems Constitutional: Weakness. denies: Fever Eyes: No Symptoms Reported. denies: Pain, Vision Change, Conjunctivae Inflammation, Eyelid Inflammation ENT: No Symptoms Reported. denies: Mouth Pain, Mouth Swelling, Throat Pain, Throat Swelling Respiratory: See HPI, Cough, Shortness of Breath. denies: Wheezing Cardiovascular: Chest Pain, See HPI. denies: Orthopnea, Edema, Light Headedness Gastrointestinal: Nausea. denies: Abdominal Pain, Diarrhea, Constipation, Melena, Hematochezia Genitourinary: No Symptoms Reported Musculoskeletal: No Symptoms Reported Skin: No Symptoms Reported. denies: Wound, Ecchymosis Neurological: Weakness. denies: Incoordination, Change in Speech, Seizures - Physical Exam Vital Signs: Temperature 99.6 F Pulse Rate [Left Brachial] 95 Pulse Rate 92 Respiratory Rate 20 Blood Pressure [Left Arm] 165/73 Blood Pressure [Right Arm] 189/89 Blood Pressure 189/89 O2 Sat by Pulse Oximetry 96 Oriented: Normal Eyes: Normal. negative: Blurred Vision, Diplopia, Discharge, Photophobia Ear: Normal. negative: Abrasion, Laceration Nose: Normal Throat: Normal Respiratory: Diminished Throughout Cardiovascular: Normal. negative: Murmur, Edema : Normal Auscultation: Bowel Sounds: Normal Palpation: Normal Tenderness: Normal Skin: Normal Musculoskeletal: Normal Psychiatric: Normal Mood Description: Calm Affect: Normal Speech Pattern: Clear - Assessment/Plan (1) Chest pain, rule out acute myocardial infarction Status: Acute Plan: telemetry, supplemental oxygen, serial cardiac enzymes and ekg, aspirin daily, plavix daily, continue to monitor (2) Pneumonia Qualifiers: Pneumonia type: due to unspecified organism Laterality: bilateral Lung location: unspecified part of lung Qualified Code(s): J18.9 - Pneumonia, unspecified organism Status: Acute Plan: pneumonia protocol, levaquin iv, fortaz iv, duonebs, supplemental oxygen, continue to monitor.
[2017-06-11] MEDS ORDERED: OSCAL+D or CALTRATE+D PO SCH (09:00)
[2017-06-11] MEDS: LIPITOR TAB 20 MG PO SCH (09:02)
[2017-06-11] MEDS: ASPIRIN EC 81 MG PO SCH (09:02)
[2017-06-11] MEDS: FOLIC ACID TAB 1 MG PO SCH (09:02)
[2017-06-11] MEDS: ALDACTONE TAB 25 MG PO SCH (09:02)
[2017-06-11] MEDS: DILANTIN CAP 100 MG EXT REL PO SCH (09:02)
[2017-06-11] MEDS: PriLOSEC PO SCH (09:03)
[2017-06-11] MEDS: MINOXIDIL PO SCH (09:03)
[2017-06-11] MEDS: ZESTRIL TAB 40 MG PO SCH (09:03)
[2017-06-11] MEDS: CATAPRES TAB 0.1 MG PO SCH (09:04)
[2017-06-11] MEDS: FORTAZ OR TAZICEF IV SCH (09:04)
[2017-06-11] MEDS: NS IV SCH (09:04)
[2017-06-11] MEDS: ROBITUSSIN DM PO SCH ×3 (09:04→17:03)
[2017-06-11] MEDS: COLACE CAP 100 MG PO SCH (09:05)
[2017-06-11] MEDS: ZOLOFT PO SCH (09:05)
[2017-06-11] MEDS: PLAVIX PO SCH (09:17)
[2017-06-11] MEDS: DUONEB 0.5 MG/3 MG NEB SCH ×3 (09:43→16:34)
[2017-06-11] MEDS: NS 1000 ML 1,000 ML IV SCH ×2 (10:59→11:00)
[2017-06-11 11:20] LABS: FREE T4 (FREE THYROXINE) 1.09 ng/dL (0.76-1.46); TSH (3RD GENERATION) 1.909 uIU/mL (0.358-3.74)
[2017-06-11 16:53] VITALS: BP 126/60
[2017-06-11] MEDS ORDERED: LEVAQUIN PREMIX IV 250 MG 250 MG/50 ML BAG IV SCH (21:00)
== END 2017-06-11 17:55 | disposition home or self-care (01) ==
LOC: MED/SURG 13:16 → UNDOADMOB 13:16 → MED/SURG 13:19
PROVIDERS: ADMIT Internal Medicine; ATTEND Internal Medicine
DX: R07.89 Other chest pain (principal); R06.02 Shortness of breath; J18.8 Other pneumonia, unspecified organism; I10 Essential (primary) hypertension; E78.2 Mixed hyperlipidemia; D64.89 Other specified anemias; E11.65 Type 2 diabetes mellitus with hyperglycemia
CPT/HCPCS: 36415; 71010; 71250; 76536; 76705; 80053; 80061; 82550; 82553; 83735; 84439; 84443; 84484; 85025; 85610; 85730; 87040; 87070; 87205; 90686; 93005; 94640; 94760; A4216; A4222; G0378; J0713; J1815; J1956; J7620

== ENCOUNTER 2017-09-22 08:06 | Day surgery (SDC) | payer OTHER, MEDICAID ==
[2017-09-22] MEDS ORDERED: D5 LR 1000 ML 1,000 ML IV ONE (08:11)
[2017-09-22] MEDS ORDERED: DIPRIVAN VIAL 20 ML ONE (09:16)
[2017-09-22 09:59] VITALS: BP 147/78
== END 2017-09-22 09:58 | disposition home or self-care (01) ==
LOC: SURG1 08:06
PROVIDERS: ATTEND Internal Medicine Gastroenterology
PROC: 0DJ08ZZ Inspection of Upper Intestinal Tract, Via Natural or Artificial Opening Endoscopic (ICD-10-PCS; principal; 2017-09-22 10:30)
PROC: 0DB88ZX Excision of Small Intestine, Via Natural or Artificial Opening Endoscopic, Diagnostic (ICD-10-PCS; principal; 2017-09-22 10:30)
PROC: 0D757ZZ Dilation of Esophagus, Via Natural or Artificial Opening (ICD-10-PCS; principal; 2017-09-22 10:30)
PROC: 0DB68ZX Excision of Stomach, Via Natural or Artificial Opening Endoscopic, Diagnostic (ICD-10-PCS; principal; 2017-09-22 10:30)
DX: R11.2 Nausea with vomiting, unspecified (principal); R10.13 Epigastric pain; K21.9 Gastro-esophageal reflux disease without esophagitis; K29.60 Other gastritis without bleeding; K20.8 Other esophagitis; K22.2 Esophageal obstruction; D64.89 Other specified anemias; R63.4 Abnormal weight loss
CPT/HCPCS: A4217; J3490; J7120

== ENCOUNTER → 2017-10-18 | Outpatient (CLI) | payer OTHER, MEDICAID ==
[2017-09-22 09:59] VITALS: BP 147/78
--- NOTE | 2017-10-18 12:25 | NM ---
GASTRIC EMPTYING STUDY HISTORY: 67-year-old female with nausea and stomach pain with change in eating habits and weight loss . RADIOPHARMACEUTICAL: 0.5 mCi Tc-99m sulfur colloid PO. TECHNIQUE: After eating a meal containing Tc-99m sulfur colloid, dynamic images of the abdomen were a cquired in the anterior and posterior views for 90 minutes. COMPARISON: None. OTHER STUDIES USED FOR CORRELATION: Gallbladder ultrasound 06/10/2017. FINDINGS: DYNAMIC IMAGES Normal radiotracer activity in the stomach with normal transit into the small bowel. Normal transit through the small bowel. QUANTITATIVE ANALYSIS The solid half emptying time is point minutes. The normal range for the solid half emptying time is 4 5 to 110 minutes. IMPRESSION: Increased gastric emptying which could be seen with dumping syndrome, consider gastroenterology consu ltation with correlation with serology. Reported By:
== END ==
LOC: RAD 09:21
PROVIDERS: ATTEND Internal Medicine Gastroenterology
DX: R11.0 Nausea (principal)
CPT/HCPCS: 78264